=== PATIENT | male | born 1985 | race African-American/Black ===

== ENCOUNTER 2017-06-16 12:04 | Emergency (ER) | END 2017-06-16 17:59 | disposition left against medical advice (07) ==

== ENCOUNTER 2018-11-17 23:09 | Emergency (ER) | payer OTHER ==
[~2018-11-17] VITALS: Ht 170.2 cm; Wt 71.5 kg
[~2018-11-17 23:09] MED LIST: CEPH-443 PO
[2018-11-17 23:17] VITALS: BP 143/62; PULSE 86; RESP 16; Ht 170.2 cm; Wt 71.5 kg
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
[2018-11-18] MEDS ORDERED: IBUP800T48 PO (01:36)
[2018-11-18] MEDS ORDERED: DIAZ5TAB PO (01:36)
== END 2018-11-18 01:38 | disposition home or self-care (01) ==
LOC: E/R 23:09
DX: S10.83XA Contusion of other specified part of neck, initial encounter (principal); J45.909 Unspecified asthma, uncomplicated; Y08.89XA Assault by other specified means, initial encounter
CPT/HCPCS: 72040; Z7502

== ENCOUNTER 2018-11-21 02:25 | Emergency (ER) | payer OTHER ==
[~2018-11-21] VITALS: Ht 165.1 cm; Wt 74.6 kg
[~2018-11-21 02:25] MED LIST changes: +DIAZ5TAB PO; +IBUP800T48 PO
[2018-11-21 02:29] VITALS: BP 129/61; PULSE 102; RESP 20; Ht 165.1 cm; Wt 74.6 kg
[2018-11-21] MEDS ORDERED: FAMOTIDINE 20 MG TAB PO ONE (03:30)
[2018-11-21] MEDS ORDERED: IBUPROFEN 600 MG TAB PO ONE (03:30)
[2018-11-21] MEDS ORDERED: DIPHENHYDRAMINE 25 MG CAP PO ONE (03:30)
[2018-11-21] MEDS ORDERED: predniSONE 20 MG TAB PO ONE (03:30)
[2018-11-21] MEDS ORDERED: PRED20TA PO ×2 (03:57→04:00)
[2018-11-21] MEDS ORDERED: BEN25 PO (03:58)
[2018-11-21] MEDS ORDERED: CLIN300C10 PO (03:58)
--- NOTE | 2018-11-22 20:38 | ERD ---
ER Documentation Chief Complaint Chief Complaint possible insect bite to right lower leg, c/o pain/swelling HPI 33yo M presents to ED for evaluation of possible insect bite to the bilat LE. Pt states to believe he may have been bitten by something yesterday and to have had increased itching and pain to the bilat LE, RLE greater than LLE, over the past day. Pt did not witness an actual bite. He states the pain and swelling to the extremity has become uncomfortable for which he rates as a 6/10. He has not tried and medications or topical creams to help alleviate his symptoms at this time. Denies fevers, chills, lip or tongue swelling, SOB, or wheezing. ROS All systems reviewed and are negative except as per history of present illness. CONSTITUTIONAL: Denies fever, Denies chills, Denies general weakness. SKIN: Admits to itching, Admits to rash, Admits to redness. RESPIRATORY: Denies SOB, Denies cough. Denies wheezing. CARDIOVASCULAR: Denies chest pain, Denies palpitations HEME: Denies easy bleeding, Denies easy bruising. NEURO: Denies focal weakness, Denies slurred speech, Denies gait problems PSYCHIATRIC: Denies change mental status, Denies confusion Medications Home Meds Active Scripts Prednisone* (Prednisone*) 20 Mg Tab, 40 MG PO DAILY for 4 Days, #8 TAB Prov:INEZ MASON PA-C 11/21/18 Diphenhydramine Hcl* (Benadryl*) 25 Mg Cap, 25 MG PO Q6 PRN for ITCHING/RASH, #30 TAB Prov:INEZ MASON PA-C 11/21/18 Clindamycin Hcl* (Clindamycin Hcl*) 300 Mg Capsule, 300 MG PO TID for skin infection for 10 Days, #30 CAP Prov:INEZ MASON PA-C 11/21/18 Diazepam* (Valium*) 5 Mg Tablet, 5 MG PO Q8 PRN for MUSCLE SPASMS, #8 TAB Prov:YON SHANE MD 11/18/18 Ibuprofen* (Motrin*) 800 Mg Tab, 800 MG PO Q6H PRN for PAIN AND OR ELEVATED TEMP, #30 TAB Prov:YON SHANE MD 11/18/18 Cephalexin* (Keflex*) 500 Mg Capsule, 500 MG PO QID for 5 Days, CAP Prov:MÓNICA DAVID PA-C 11/12/15 Discontinued Scripts Prednisone* (Prednisone*) 20 Mg Tab, 40 MG PO DAILY for 4 Days, #4 TAB Prov:MASONINEZ PA-C 11/21/18 Allergies Allergies: Coded Allergies: Petrolatum,White (Verified Allergy, Unknown, 11/12/15) SOB camphor (Verified Allergy, Unknown, 11/12/15) SOB eucalyptus (Verified Allergy, Unknown, 11/12/15) SOB menthol (Verified Allergy, Unknown, 11/12/15) SOB turpentine oil (Verified Allergy, Unknown, 11/12/15) SOB PMhx/Soc Medical and Surgical Hx: pt denies Surgical Hx History of Surgery: No Anesthesia Reaction: No Hx Neurological Disorder: No Hx Respiratory Disorders: Yes (ASTHMA ) Hx Cardiac Disorders: No Hx Psychiatric Problems: No Hx Miscellaneous Medical Probl: No Hx Alcohol Use: No Hx Substance Use: No Hx Tobacco Use: No Smoking Status: Never smoker Physical Exam Vitals Vital Signs Date Temp Pulse Resp B/P (MAP) Pulse Ox O2 O2 Flow FiO2 Time Delivery Rate 11/21/18 98.0 102 20 129/61 97 02:29 (83) Physical Exam Const: No acute distress Head: Atraumatic. Normocephalic. Eyes: Normal Conjunctiva. No periorbital edema. ENT: Normal External Ears, Nose and Mouth. No angioedema, no tongue swelling. Neck: Full range of motion. No meningismus. Resp: Clear to auscultation bilaterally. No wheezes. Speaking full sentences. Cardio: Regular rate and rhythm, no murmurs Skin: No petechiae. Two visible blistered lesions to the Left posterior LE with surrounding erythema and warmth. No discharge, no ulcerations. One small blistered lesions to the Right lateral LE, with no surrounding erythema and warmth. Ext: No unilateral calf swelling. No calf tenderness. Full ROM. Neur: Awake and alert Psych: Normal Mood and Affect Results 24 hrs Current Medications Medications Dose Sig/Lindy Start Time Status Last (Trade) Ordered Route PRN Stop Time Admin Dose Reason Admin Prednisone 60 mg ONCE ONCE 11/21/18 DC 11/21/18 (Prednisone) PO 03:30 03:32 11/21/18 03:31 Famotidine 40 mg ONCE ONCE 11/21/18 DC 11/21/18 (Pepcid) PO 03:30 03:33 11/21/18 03:31 25 mg ONCE ONCE 11/21/18 DC 11/21/18 Diphenhydrami PO 03:30 03:33 ne HCl 11/21/18 03:31 (Benadryl) Ibuprofen 600 mg ONCE ONCE 11/21/18 DC 11/21/18 (Motrin) PO 03:30 03:33 11/21/18 03:31 Procedures/MDM MDM: Patient presented to the emergency department with erythematous swollen round area after insect bite, however the patients oropharynx was clear and exh ibited no breathing difficulties, wheezing, tongue swelling, or lip swelling. The differential diagnosis includes but not limited to allergic reaction, drug rash, eczema, insect bite, bee sting, MRSA, necrotizing fascitis, impetigo, shingles, HSV, burn, abscess, dermatitis, viral syndrome, and medication reaction. No critical abnormalities were noted and consequently the patient requires re-evaluation, monitoring, and medical therapy. Patient was given benadryl, famotidine and prednisone while in ED with pt expressing improvement in pain upon re-evaluation. Given surrounding erythema and warmth of the lesions, pt will be treated for both cellulitis and allergic reaction to insect bite. Pt stable for outpatient management given improving symptoms and will be prescribed Prednisone, Benadryl, and Clindamycin. Advised to f/u with PCP in 2 days and to return to emergency room sooner if worsening or new symptoms. Pt expressed verbal understanding and agreement to treatment plan. All questions addressed and answered. Departure Diagnosis: Primary Impression: Insect bite Encounter type: initial encounter Site of insect bite: lower leg Latera lity: unspecified laterality Qualified Codes: S80.869A - Insect bite (nonvenomous), unspecified lower leg, initial encounter; W57.XXXA - Bitten or stung by nonvenomous insect and other nonvenomous arthropods, initial encou nter Additional Impressions: Cellulitis Site of cellulitis: extremity Site of cellulitis of extremity: lower extremity Laterality: unspecified laterality Qualified Codes: L03.119 - Cellulitis of unspecified part of limb Allergic reaction Encounter type: initial encounter Qualified Codes: T78.40XA - Allergy, unspecified, initial encounter Condition: Stable Patient Instructions: Allergic Reaction, Insect (General), Cellulitis, Insect Bite Referrals: [facility] YOU HAVE RECEIVED A MEDICAL SCREENING EXAM AND THE RESULTS INDICATE THAT YOU DO NOT HAVE A CONDITION THAT REQUIRES URGENT TREATMENT IN THE EMERGENCY DEPARTMENT. FURTHER EVALUATION AND TREATMENT OF YOUR CONDITION CAN WAIT UNTIL YOU ARE SEEN IN YOUR DOCTORS OFFICE WITHIN THE NEXT 1-2 DAYS. IT IS YOUR RESPONSIBILITY TO MAKE AN APPOINTMENT FOR FOLOW-UP CARE. IF YOU HAVE A PRIMARY DOCTOR --you should call your primary doctor and schedule an appointment IF YOU DO NOT HAVE A PRIMARY DOCTOR YOU CAN CALL OUR PHYSICIAN REFERRAL HOTLINE AT IF YOU CAN NOT AFFORD TO SEE A PHYSICIAN YOU CAN CHOSE FROM THE FOLLOWING [facility] [address] [facility]. [facility] [address] [facility] [address] [facility] [address] [facility]. [facility] [address] [facility] [facility]. [address] INEZ GARZA PA-C Nov 22, 2018 20:36
== END 2018-11-21 04:08 | disposition home or self-care (01) ==
LOC: FTE 02:25
DX: S80.861A Insect bite (nonvenomous), right lower leg, initial encounter (principal); S80.862A Insect bite (nonvenomous), left lower leg, initial encounter; L03.119 Cellulitis of unspecified part of limb; J45.909 Unspecified asthma, uncomplicated; W57.XXXA Bitten or stung by nonvenomous insect and other nonvenomous arthropods, initial encounter; Y92.9 Unspecified place or not applicable
CPT/HCPCS: J7512; Z7502; Z7610; 99283

== ENCOUNTER 2018-12-17 21:56 | Emergency (ER) | payer OTHER ==
[~2018-12-17] VITALS: Ht 172.7 cm; Wt 76.7 kg
[~2018-12-17 21:56] MED LIST changes: +BEN25 PO; +CLIN300C10 PO; +DIPH28.45 TP; +PRED20TA PO
[2018-12-17 22:04] VITALS: BP 129/63; PULSE 77; RESP 16; Ht 172.7 cm; Wt 76.7 kg
[2018-12-17] MEDS ORDERED: DEXAMETHASONE 10 MG/ML 1 ML INJ PO ONE (23:00)
[2018-12-17] MEDS ORDERED: DIPHENHYDRAMINE 2.5 MG/ML 5ML CUP PO ONE (23:00)
[2018-12-17] MEDS ORDERED: CEPHALEXIN 500 MG CAP PO ONE (23:00)
[2018-12-17] MEDS ORDERED: DEXAMETHASONE 10 MG/ML 1 ML INJ IM ONE (23:00)
--- NOTE | 2018-12-18 01:14 | ERD ---
ER Documentation Chief Complaint Chief Complaint left hand pain from possible insect bite. HPI History of Present Illness: 33-year-old male who reports a past medical history of asthma coming in today due to complaint of left hand swelling. Patient reports waking up with swelling to his left hand and believes he may have been a insect bite patient did not feel any bite suspicious that it may have occurred during sleep. At home pharmacological/nonpharmacological treatment for symptoms: Denies Denies social concerns; Denies recent foreign travel ROS All systems reviewed and are negative except as per history of present illness. Medications Home Meds Active Scripts Cephalexin* (Keflex*) 500 Mg Capsule, 500 MG PO TID for HAND for 7 Days, CAP Prov:ADRIENNE FORREST NP 12/17/18 Diphenhydramine HCl/Zinc Acet (Anti-Itch 2% Cream) 28.4 Gm Cream..g., 1 GM TP Q4 PRN for ITCHING, #1 TUBE Prov:ADRIENNE FORREST NP 12/17/18 Diphenhydramine Hcl* (Benadryl*) 25 Mg Cap, 25 MG PO Q6 PRN for ITCHING/RASH, #30 TAB Prov:ADRIENNE FORREST NP 12/17/18 Prednisone* (Prednisone*) 20 Mg Tab, 40 MG PO DAILY for 4 Days, #8 TAB Prov:INEZ MASON PA-C 11/21/18 Diphenhydramine Hcl* (Benadryl*) 25 Mg Cap, 25 MG PO Q6 PRN for ITCHING/RASH, #30 TAB Prov:INEZ MASON PA-C 11/21/18 Clindamycin Hcl* (Clindamycin Hcl*) 300 Mg Capsule, 300 MG PO TID for skin infection for 10 Days, #30 CAP Prov:INEZ MASON PA-C 11/21/18 Diazepam* (Valium*) 5 Mg Tablet, 5 MG PO Q8 PRN for MUSCLE SPASMS, #8 TAB Prov:YON SHANE MD 11/18/18 Ibuprofen* (Motrin*) 800 Mg Tab, 800 MG PO Q6H PRN for PAIN AND OR ELEVATED TEMP, #30 TAB Prov:YON SHANE MD 11/18/18 Cephalexin* (Keflex*) 500 Mg Capsule, 500 MG PO QID for 5 Days, CAP Prov:MÓNICA DAVID PA-C 11/12/15 Allergies Allergies: Coded Allergies: camphor (Verified Allergy, Unknown, 12/17/18) SOB eucalyptus (Verified Allergy, Unknown, 12/17/18) SOB menthol (Verified Allergy, Unknown, 12/17/18) SOB petrolatum,white (Verified Allergy, Unknown, 12/17/18) SOB turpentine oil (Verified Allergy, Unknown, 12/17/18) SOB PMhx/Soc Medical and Surgical Hx: pt denies Surgical Hx History of Surgery: No Anesthesia Reaction: No Hx Neurological Disorder: No Hx Respiratory Disorders: Yes (ASTHMA ) Hx Cardiac Disorders: No Hx Psychiatric Problems: No Hx Miscellaneous Medical Probl: No Hx Alcohol Use: No Hx Substance Use: Yes (MARIJUANA) Hx Tobacco Use: No Smoking Status: Never smoker FmHx Family History: No diabetes, No coronary disease Physical Exam Vitals Vital Signs Date Temp Pulse Resp B/P (MAP) Pulse Ox O2 O2 Flow FiO2 Time Delivery Rate 12/17/18 97.3 77 16 129/63 98 22:04 (85) Physical Exam Const: No acute distress, afebrile Head: Atraumatic Eyes: Normal Conjunctiva ENT: Normal External Ears, Nose and Mouth. Neck: Full range of motion. No meningismus. Resp: Clear to auscultation bilaterally Cardio: Regular rate and rhythm, no murmurs Abd: Soft, non tender, non distended. No guarding, no masses, no rigidity Skin: No petechiae or rashes Back: No midline or flank tenderness Ext: No cyanosis; left upper extremity; swelling noted to the dorsal aspect of left hand between the thumb and first finger, no warmth, no fluctuance, no induration Neur: Awake and alert x3, speaking in clear sentences, no focal deficits or facial asymmetry Psych: Normal Mood and Affect Results 24 hrs Current Medications Medications Dose Sig/Lindy Start Time Status Last (Trade) Ordered Route PRN Stop Time Admin Dose Reason Admin 10 mg ONCE ONCE 12/17/18 DC Dexamethasone IM 23:00 (Decadron) 12/17/18 23:00 25 mg ONCE ONCE 12/17/18 DC 12/17/18 Diphenhydrami PO 23:00 22:54 ne HCl 12/17/18 23:01 (Benadryl Liquid Cup) Cephalexin 500 mg ONCE ONCE 12/17/18 DC 12/17/18 (Keflex) PO 23:00 22:54 12/17/18 23:01 10 mg ONCE ONCE 12/17/18 DC 12/17/18 Dexamethasone PO 23:00 23:00 (Decadron) 12/17/18 23:01 Procedures/MDM K flex ED COURSE: ED course includes a thorough examination and history. The patient was stable throughout ED course. I kept the patient and/or family informed of laboratory and diagnostic imaging results throughout the ED course. MEDICATIONS GIVEN IN ER: Dexamethasone, diphenhydramine, cephalexin Patient tolerated medication well with no adverse reactions. Patient reported improvement in swelling. MEDICAL DECISION MAKING: Low suspicion for life-threatening medical emergency. Low suspicion for i nfectious process that requires hospitalization. Otherwise healthy patient presenting with constellation of symptoms likely rep resenting uncomplicated allergic reaction due to insect bites as characterized by history, physical exam findings . Patient reassessment @ 2318: Patient medicated as ordered. Patient hemodynamically stable. No respiratory distress, otherwise relatively well appearing and nontoxic. Disposition given. Patient educated on diagnoses, prescriptions, follow-up care, return precautions. Strict return precautions given for worsening condition; questions answered discharge. Patient verbalizes understanding of discharge instructions. PRESCRIPTIONS FOR HOME: Keflex, diphenhydramine DISPOSITION: DISCHARGE At this time, patient is stable for discharge and outpatient management. I have instructed the patient to follow-up with his/her primary care physician in 1-2 days. I have discussed with the patient the possibility of needing to see a specialist for further workup and imaging studies if symptoms persist. I have instructed the patient to promptly return to the ER for any new or worsening symptoms including increased pain, fever, nausea, vomiting, weakness or LOC. The patient and/or family expressed understanding of and agreement with this plan. All questions were answered. Home care instructions were provided. DISCLAIMER: Inadvertent spelling and grammatical errors are likely due to EHR/dictation software use and do not reflect on the overall quality of patient care. Also, please note that the electronic time recorded on this note does not necessarily reflect the actual time of the patient encounter. Departure Diagnosis: Primary Impression: Insect bite Additional Impression: Swelling of hand Condition: Stable Patient Instructions: Allergic Reaction, Insect (Local) Referrals: [facility] YOU HAVE RECEIVED A MEDICAL SCREENING EXAM AND THE RESULTS INDICATE THAT YOU DO NOT HAVE A CONDITION THAT REQUIRES URGENT TREATMENT IN THE EMERGENCY DEPARTMENT. FURTHER EVALUATION AND TREATMENT OF YOUR CONDITION CAN WAIT UNTIL YOU ARE SEEN IN YOUR DOCTORS OFFICE WITHIN THE NEXT 1-2 DAYS. IT IS YOUR RESPONSIBILITY TO MAKE AN APPOINTMENT FOR FOLOW-UP CARE. IF YOU HAVE A PRIMARY DOCTOR --you should call your primary doctor and schedule an appointment IF YOU DO NOT HAVE A PRIMARY DOCTOR YOU CAN CALL OUR PHYSICIAN REFERRAL HOTLINE AT IF YOU CAN NOT AFFORD TO SEE A PHYSICIAN YOU CAN CHOSE FROM THE FOLLOWING [facility] [address] [facility]. [facility] [address] [facility] [address] [facility] [address] [facility] [address] [facility]. [facility] [address] [facility]. [facility] [address] [facility] YOU HAVE RECEIVED A MEDICAL SCREENING EXAM AND THE RESULTS INDICATE THAT YOU DO NOT HAVE A CONDITION THAT REQUIRES URGENT TREATMENT IN THE EMERGENCY DEPARTMENT. FURTHER EVALUATION AND TREATMENT OF YOUR CONDITION CAN WAIT UNTIL YOU ARE SEEN IN YOUR DOCTORS OFFICE WITHIN THE NEXT 1-2 DAYS. IT IS YOUR RESPONSIBILITY TO MAKE AN APPOINTMENT FOR FOLOW-UP CARE. IF YOU HAVE A PRIMARY DOCTOR --you should call your primary doctor and schedule and appointment IF YOU DO NOT HAVE A PRIMARY DOCTOR YOU CAN CALL OUR PHYSICIAN REFERRAL HOTLINE AT . IF YOU CAN NOT AFFORD TO SEE A PHYSICIAN YOU CAN CHOSE FROM THE FOLLOWING [facility] INSTITUTIONS: [facility] [address] [place] [address] [facility] [address] [place] [address] [facility] [place] [address] [place] [address] Additional Instructions: Thank you very much for allowing us to participate in your care. Your health and safety is our top priority at [facility]. It is important to read all discharge instructions and education provided in your discharge packet. Call your primary care doctor TOMORROW for an appointment during the next 2-4 days and bring all the information and medications prescribed. Have prescriptions filled and follow precisely the directions on the label. -Cephalexin is an antibiotic; take this medication every day as listed on your prescription. You must complete the entire course of treatment that is listed on your prescription this is very important because it takes a certain number of days to kill the bacteria that is causing the infection. -Tried diphenhydramine cream to see if this helps relieve itching. If this does not work then try diphenhydramine pills. Keep in mind, the pills may cause drowsiness. If the symptoms get worse and your provider is unavailable, return to the Emergency Department immediately. ADRIENNE FORREST NP Dec 18, 2018 01:14
== END 2018-12-17 23:23 | disposition home or self-care (01) ==
LOC: FTE 21:56
DX: S60.562A Insect bite (nonvenomous) of left hand, initial encounter (principal); J45.909 Unspecified asthma, uncomplicated; W57.XXXA Bitten or stung by nonvenomous insect and other nonvenomous arthropods, initial encounter; Y92.9 Unspecified place or not applicable
CPT/HCPCS: J1100; Z7502; Z7610